=== PATIENT | male | born 1930 | race Caucasian/White ===

== ENCOUNTER 2019-04-06 00:17 | Emergency (ER) | payer MEDICARE ==
[~2019-04-06] VITALS: Wt 57.4 kg
[~2019-04-06 00:17] MED LIST: AMOXICILLIN500 MG PO; AZITHROMYCIN250 MG PO; DARVOCET N 1001 TAB PO; DIPHENHYDRAMINE25 M1 PO; LASIX20 MG PO; LISINOPRIL2.5 MG PO; LOPRESSOR25 MG PO; SIMVASTATIN5 MG PO; [UNRECOGNIZED DRUG - OTHER] PO
[2019-04-06 00:57] LABS: HEMATOCRIT 34.2 % (42.0-52.0); HEMOGLOBIN 9.7 g/dl (14.0-18.0); MEAN CORPUSCULAR HGB 24.7 pg (27.0-31.0); MEAN CORPUSCULAR HGB CONC 28.4 g/dl (33.0-37.0); MEAN PLATELET VOLUME 11.8 fl (9.6-12.3); PLATELET COUNT AUTOMATED 131 10*3/uL (130-400); RED BLOOD COUNT 3.93 10*6/uL (4.50-5.90); RED CELL DISTRI WIDTH 16.5 % (0-14.5); WHITE BLOOD COUNT 5.2 10*3/uL (4.8-10.8)
[2019-04-06 01:00] VITALS: BP 145/77
[2019-04-06 01:07] LABS: ACT PARTIAL THROMBO TIME 28.6 SECONDS (20.0-32.1)
[2019-04-06 01:14] LABS: BUN 19 mg/dl (7-24); CHLORIDE 107 mmol/L (98-107); CREATININE 1.08 mg/dL (0.70-1.30); POTASSIUM 3.4 mmol/L (3.5-5.1); SGOT/AST 33 IU/L (3-35); SGPT/ALT 40 U/L (12-78); SODIUM 142 mmol/L (136-145); TOTAL PROTEIN 7.1 gm/dL (6.4-8.2)
[2019-04-06 01:16] LABS: ALKALINE PHOSPHATASE 84 U/L (45-117); TROPONIN I 0.037 ng/ml (<0.045)
[2019-04-06 01:18] LABS: BASOPHILS 3 % (0-1); OVALOCYTES MODERATE; PLATELET SUFFICIENCY NORMAL (NORMAL); TOTAL CELLS COUNTED 100 #CELLS
[2019-04-06 01:19] LABS: BURR CELLS FEW
[2019-04-06 01:54] LABS: BACTERIA 1+; BILIRUBIN NEGATIVE (NEGATIVE); BLOOD 2+ (NEGATIVE); CLARITY CLEAR (CLEAR); COLOR YELLOW (YELLOW); EPITHELIAL CELLS 0-2; GLUCOSE NEGATIVE (NEGATIVE); KETONE NEGATIVE (NEGATIVE); LEUKO ESTERASE TRACE (NEGATIVE); NITRITE POSITIVE (NEGATIVE); SPECIFIC GRAVITY 1.025 (1.005-1.030); UROBILINOGEN 0.2 E.U./dl (0.2-1.0)
[2019-04-06] MEDS ORDERED: LEVOFLOXACIN500 MG PO ×2 (02:47→02:49)
== END 2019-04-06 03:09 | disposition left against medical advice (07) ==
LOC: ED 00:17
PROVIDERS: Emergency Medicine Emergency Medical Services
DX: J18.9 Pneumonia, unspecified organism (principal); R07.89 Other chest pain; R64 Cachexia; I10 Essential (primary) hypertension; E78.00 Pure hypercholesterolemia, unspecified; F41.9 Anxiety disorder, unspecified; Z88.1 Allergy status to other antibiotic agents; Z88.8 Allergy status to other drugs, medicaments and biological substances; Z79.899 Other long term (current) drug therapy

== ENCOUNTER 2019-06-08 20:06 | Emergency (ER) | payer MEDICARE ==
[~2019-06-08 20:06] MED LIST changes: +LEVOFLOXACIN500 MG PO
[2019-06-08 20:46] LABS: ACT PARTIAL THROMBO TIME 22.7 SECONDS (20.0-32.1); INTERNATIONAL NORM RATIO 1.1 (2.0-3.5)
[2019-06-08 20:55] LABS: ALBUMIN 2.8 gm/dl (3.1-4.5); CREATININE 1.71 mg/dL (0.70-1.30); POTASSIUM 5.6 mmol/L (3.5-5.1); TOTAL PROTEIN 6.5 gm/dL (6.4-8.2); TROPONIN I 0.036 ng/ml (<0.045)
[2019-06-08 21:00] LABS: MEAN CELL VOLUME 78.9 fl (80.0-94.0); MEAN CORPUSCULAR HGB 22.1 pg (27.0-31.0); MEAN PLATELET VOLUME 10.5 fl (9.6-12.3); NUCLEATED RED BLOOD CELL 0.1 10*3/uL (0.0-0.0); NUCLEATED RED BLOOD CELL 3.3 % (0.0-0.0); PLATELET COUNT AUTOMATED 96 10*3/uL (130-400); RED BLOOD COUNT 2.13 10*6/uL (4.50-5.90); RED CELL DISTRI WIDTH 18.4 % (0-14.5); WHITE BLOOD COUNT 3.7 10*3/uL (4.8-10.8)
[2019-06-08 21:03] LABS: HEMATOCRIT 16.8 % (42.0-52.0); HEMOGLOBIN 4.7 g/dl (14.0-18.0)
[2019-06-08 21:06] LABS: BASOPHILS 2 % (0-1); PLATELET SUFFICIENCY LOW (NORMAL); TOTAL CELLS COUNTED 100 #CELLS
[2019-06-08 21:07] LABS: OVALOCYTES FEW; POLYCHROMASIA SLIGHT
[2019-06-08 23:23] VITALS: BP 101/30
[2019-06-08 23:53] VITALS: BP 91/43
[2019-06-09 00:01] VITALS: BP 92/37
[2019-06-09 00:18] VITALS: BP 102/45
[2019-06-09 00:35] VITALS: BP 97/47
[2019-06-09 01:21] VITALS: BP 96/44
[2019-06-09 01:47] VITALS: BP 96/44
== END 2019-06-09 02:28 | disposition short-term general hospital (02) ==
LOC: ED 20:06
PROVIDERS: Emergency Medicine
DX: K92.2 Gastrointestinal hemorrhage, unspecified (principal); D64.9 Anemia, unspecified; R06.09 Other forms of dyspnea; R42 Dizziness and giddiness; I10 Essential (primary) hypertension; E78.00 Pure hypercholesterolemia, unspecified; F41.9 Anxiety disorder, unspecified; Z79.899 Other long term (current) drug therapy